=== PATIENT | female | born 1985 | race Caucasian/White ===

== ENCOUNTER 2019-12-12 19:19 | Inpatient (IN) ==
[2019-12-12] MEDS ORDERED: TRANEXAMIC ACID 1,000 MG/10 ML VIAL ONE (19:29)
[2019-12-12] MEDS ORDERED: miSOPROStoL 200 MCG TABLET ONE (19:29)
[2019-12-12] MEDS ORDERED: OXYTOCIN/LR 20 UNIT/1,000 ML BAG IV ONE ×3 (19:29→23:46)
[2019-12-12] MEDS ORDERED: CARBOPROST TROMETHAMINE 250 MCG/ML AMP IM ONE (19:30)
[2019-12-12] MEDS ORDERED: METHYLERGONOVINE 0.2 MG/1 ML AMP ONE (19:30)
[2019-12-12] MEDS: LACTATED RINGERS 1,000 ML IV SCH ×2 (19:36→23:49)
[2019-12-12] MEDS ORDERED: MEPERIDINE 50 MG/1 ML VIAL ONE (19:54)
[2019-12-12] MEDS ORDERED: WITCH HAZEL PADS 100/JAR TOP PRN (20:25)
[2019-12-12] MEDS ORDERED: ACETAMINOPHEN 325 MG TABLET PO PRN (20:25)
[2019-12-12] MEDS ORDERED: BENZOCAINE 20%/MENTHOL 0.5% SPRAY 56 GM CAN TOP PRN (20:25)
[2019-12-12] MEDS ORDERED: MEASLES/MUMPS/RUBELLA VACCINE 0.5 ML VIAL SUBCUT ONE (20:25)
[2019-12-12] MEDS ORDERED: HYDROCORTISONE 2.5% RECTAL CREAM 30 GM TUBE TOP PRN (20:25)
[2019-12-12] MEDS ORDERED: BISACODYL 10 MG SUPP RECTAL PRN (20:25)
[2019-12-12] MEDS ORDERED: oxyCODONE/ACETAMINOPHEN 5-325 MG TABLET PO PRN ×2 (20:25)
[2019-12-12] MEDS ORDERED: LANOLIN 50% CREAM 0.3 OZ TUBE TOP PRN (20:25)
[2019-12-12] MEDS ORDERED: ONDANSETRON 4 MG/2 ML VIAL IV PRN ×2 (20:25)
[2019-12-12] MEDS ORDERED: RHO(D) IMMUNE GLOBULIN 300 MCG SYRINGE IM ONE (20:25)
[2019-12-12] MEDS ORDERED: DIPH/TET/ACEL PERT BOOSTER VACCINE 0.5 ML VIAL IM ONE (20:25)
[2019-12-12 20:43] LABS: Cord Arterial Blood HCO3 17.9 MMOL/L
[2019-12-12 20:44] LABS: Cord Venous Blood HCO3 19.1 MMOL/L; Cord Venous Blood PCO2 35.6 MMHG; Cord Venous Blood PO2 26.2 MMHG
[2019-12-12 21:12] LABS: Basophils % 0.2 % (0.0-0.8); Eosinophils % 0.3 % (0.00-10.9); Hematocrit 30.6 VOL% (35.7-47.0); Hemoglobin 9.5 GM/DL (12.0-16.0); Immature Granulocytes % 0.4 %; Immature Granulocytes Absolute 0.04 #; Lymphocytes # 2.3 10*3/uL (1.4-4.0); Lymphocytes % 21.8 % (21.3-54.2); Mean Corpuscular Volume 89.2 FL (87-102); Mean Platelet Volume 11.7 FL (9.6-12.0); Neutrophils % 71.3 % (38.7-73.9); Platelet Count 226 T/CUMM (130-400); Red Blood Count 3.43 MC/CUMM (3.8-5.5); White Blood Count 10.4 T/CUMM (4-12)
[2019-12-12 21:35] LABS: Albumin 2.3 G/DL (3.4-5.0); Bilirubin,Total 0.4 MG/DL (0.2-1.0); Calcium 8.3 MG/DL (8.5-10.1); Osmolality,Calculated 269.8 MOS/KG (273-304); Total Protein 6.7 G/DL (6.4-8.3)
[2019-12-12 22:21] LABS: Hepatitis B Surface Ag Result Negative (Negative)
[2019-12-12 22:50] LABS: HIV Antigen/Antibody Result Nonreactive (Nonreactive)
[2019-12-12] MEDS ORDERED: MEPERIDINE 50 MG/1 ML VIAL IV ONE (23:44)
[2019-12-13] MEDS: IBUPROFEN 800 MG TABLET PO PRN ×3 (01:25→19:57)
[2019-12-13] MEDS: DOCUSATE SODIUM 100 MG CAPSULE PO SCH ×3 (01:58→21:20)
[2019-12-13 03:12] LABS: Basophils % 0.2 % (0.0-0.8); Eosinophils % 0.2 % (0.00-10.9); Hematocrit 26.1 VOL% (35.7-47.0); Immature Granulocytes % 0.6 %; Immature Granulocytes Absolute 0.08 #; Lymphocytes # 2.2 10*3/uL (1.4-4.0); Lymphocytes % 17.7 % (21.3-54.2); Mean Corpuscular HGB Conc 30.7 GM/DL (32-36); Mean Corpuscular Volume 89.1 FL (87-102); Mean Platelet Volume 11.6 FL (9.6-12.0); Monocytes % 6.8 % (1.7-12.7); Neutrophils % 74.5 % (38.7-73.9); Platelet Count 194 T/CUMM (130-400); Red Blood Count 2.93 MC/CUMM (3.8-5.5); Red Cell Distribution Width 13.9 % (9.3-17.3); White Blood Count 12.4 T/CUMM (4-12)
[2019-12-13] MEDS: LACTATED RINGERS 1,000 ML IV SCH (06:08)
[2019-12-13] MEDS ORDERED: FERROUS SULFATE 325 MG TABLET PO SCH (09:00)
[2019-12-13] MEDS: FERROUS SULFATE 325 MG TABLET PO SCH ×3 (09:40→21:20)
[2019-12-14] MEDS: IBUPROFEN 800 MG TABLET PO PRN (03:49)
[2019-12-14 07:35] VITALS: BP 94/54
[2019-12-14] MEDS: FERROUS SULFATE 325 MG TABLET PO SCH (08:34)
== END 2019-12-14 13:05 | disposition home or self-care (01) | DRG 560 ==
LOC: N.LDOUT 19:19 → N.LD 19:23 → N.OB 12-13 01:05
PROVIDERS: ADMIT Obstetrics & Gynecology; ATTEND Obstetrics & Gynecology